=== PATIENT | female | born 1990 | race African-American/Black ===

== ENCOUNTER 2016-06-07 21:49 | Emergency (ER) | payer MEDICAID, OTHER ==
[~2016-06-07] VITALS: Ht 162.6 cm; Wt 53.0 kg
[~2016-06-07 21:49] MED LIST: DIAZ5 PO; IBUP-238 PO
[2016-06-07 21:52] VITALS: BP 105/57; PULSE 77; RESP 16; TEMP 98.3; O2SAT 100
[2016-06-07 22:58] LABS: BLOOD, URINE NEG (NEG); GLUCOSE,URINE NEG (NEG); KETONE, URINE NEG (NEG); MUCUS URINE FEW /lpf (OCC); NITRITE,URINE NEG (NEG); PH, URINE 5.5 (5.0-8.5); RENAL EPITHELIAL CELLS <1 /hpf; SQUAMOUS EPITHELIAL CELL URINE 2 /hpf (0-5); URINE COLOR LIGHT-YELLOW (YELLW/STRAW)
[2016-06-07 22:59] LABS: COMMENT (UR) CULTURE INDICATED; CULTURE IF INDICATED CULTURE INDICATED
== END 2016-06-07 22:52 | disposition left against medical advice (07) ==
LOC: NED 21:49
DX: R10.9 Unspecified abdominal pain (principal); B96.89 Other specified bacterial agents as the cause of diseases classified elsewhere; Z53.21 Procedure and treatment not carried out due to patient leaving prior to being seen by health care provider
CPT/HCPCS: 81001; 84703; 87077; 87086; 87186; 99281